=== PATIENT | female | born 1960 | race Caucasian/White ===

== ENCOUNTER 2017-04-21 17:47 | Emergency (ER) | payer BC, OTHER ==
[~2017-04-21] VITALS: Ht 154.9 cm; Wt 72.9 kg
[2017-04-21 18:06] VITALS: Ht 154.9 cm; Wt 72.9 kg
--- NOTE | 2017-04-21 18:58 | EMERGENCY ROOM VISIT NOTE ---
History Report prepared by Ottoniel: Jeanna Costa Under the Supervision of: Dr. Marissa Mayers M.D. First contact with patient: 18:22 Chief Complaint: ABNORMAL LABS Stated Complaint: LOW HEMOGLOBIN, REFERRED History of Present Illness The patient is a 57 year old female who presents to the Emergency Room with complaints of constant shortness of breath beginning 2 months ago. The patient states that she has been feeling lethargic and out of breath for about 2 months. She notes that her symptoms have been progressively worsening and are much worse with exertion. She reports that she went to the [facility] walk-in clinic today for her worsening shortness of breath and got labs done. They called her today and told her to come into the ED for low hemoglobin. The patient states that she does not get her period, she does not smoke, and she has not had a hysterectomy. She reports that she has had increased stress from a new job and has a history of a uterine fibroid cyst that is not new or bleeding. She complains of coughing at night. The patient denies any bleeding, chest pain, changes in bowel movements, changes in diet, blood in the stools, leg swelling, nausea, vomiting, changes in sleep habits, hair loss, and weight changes. She notes that she is relatively active and has been running, hiking, and biking in the last 6 months with some difficulty recently due to her shortness of breath. Source of History: patient Onset: 2 months ago Position: other (respiratory) Quality: other (SOB) Timing: constant Modifying Factors (Worsening): exertion Associated Symptoms: + cough, + fatigue, No chest pain, No nausea, No vomiting Note: The patient denies any bleeding, changes in bowel movements, changes in diet, blood in the stools, leg swelling, changes in sleep habits, hair loss, and weight changes. Review of Systems See HPI for pertinent positives & negatives. A total of 10 systems reviewed and were otherwise negative. Past Medical & Surgical Medical Problems: (1) Uterine fibroid Family History No pertinent family history stated. Social History Smoking Status: Never Smoker Marital Status: Housing Status: lives with family Occupation Status: employed Current/Historical Medications No Active Prescriptions or Reported Meds Allergies Coded Allergies: Sulfa Antibiotics (Verified Allergy, Intermediate, Itchiness, 04/21/17) Physical Exam Vital Signs Date Time Temp Pulse Resp B/P (MAP) Pulse Ox O2 Delivery O2 Flow Rate FiO2 10/24/17 00:20 37.0 88 20 160/82 99 Room Air 04/21/17 23:54 37.0 86 20 160/82 99 04/21/17 23:08 83 04/21/17 23:03 37.0 85 16 152/79 99 04/21/17 22:32 04/21/17 22:31 37.0 82 16 139/83 97 04/21/17 22:07 37.0 81 16 141/67 97 04/21/17 21:54 37.0 81 16 140/77 98 04/21/17 20:39 84 16 127/79 98 Room Air 04/21/17 19:10 84 04/21/17 18:06 37.1 90 20 173/77 100 Room Air Physical Exam Vital signs reviewed. General: Well-appearing female, in no significant distress. HEENT: No scleral icterus, pale conjunctiva, PERRLA, neck supple. Atraumatic. Cardiovascular: Regular rate and rhythm, no extra sounds. Pulmonary: Clear to auscultation bilaterally, normal work of breathing. Abdomen: Soft, nontender, nondistended, positive bowel sounds. Musculoskeletal: Atraumatic, no peripheral edema. Neurologic: Patient awake alert and oriented x 3, full strength in all 4 extremities. Cranial nerves 2 through 12 grossly intact. Skin: Warm, dry, no rash Rectal: Guaiac negative stool. Normal external mucosa. Medical Decision & Procedures Laboratory Results 04/21/17 18:42 Red Blood Count 4.07, Mean Corpuscular Volume 56.8, Mean Corpuscular Hemoglobin 16.5, Mean Corpuscular Hemoglobin Concent 29.0, Neutrophils (%) (Auto) 78.5, Lymphocytes (%) (Auto) 16.1, Monocytes (%) (Auto) 3.5, Eosinophils (%) (Auto) 0.8, Basophils (%) (Auto) 0.8, Neutrophils # (Auto) 6.91, Lymphocytes # (Auto) 1.42, Monocytes # (Auto) 0.31, Eosinophils # (Auto) 0.07, Basophils # (Auto) 0.07 04/21/17 18:42 Test 04/21/17 18:42 04/21/17 18:54 White Blood Count 8.81 K/uL (4.8-10.8) Red Blood Count 4.07 M/uL (4.2-5.4) Hemoglobin 6.8 g/dL (12.0-16.0) Hematocrit 23.1 % (37-47) Mean Corpuscular Volume 56.8 fL (80-100) Mean Corpuscular Hemoglobin 16.5 pg (25-34) Mean Corpuscular Hemoglobin Concent 29.0 g/dl (32-36) Platelet Count 440 K/uL (130-400) Neutrophils (%) (Auto) 78.5 % Lymphocytes (%) (Auto) 16.1 % Monocytes (%) (Auto) 3.5 % Eosinophils (%) (Auto) 0.8 % Basophils (%) (Auto) 0.8 % Neutrophils # (Auto) 6.91 K/uL (1.4-6.5) Lymphocytes # (Auto) 1.42 K/uL (1.2-3.4) Monocytes # (Auto) 0.31 K/uL (0.11-0.59) Eosinophils # (Auto) 0.07 K/uL (0-0.5) Basophils # (Auto) 0.07 K/uL (0-0.2) RDW Standard Deviation 42.4 fL (36.4-46.3) RDW Coefficient of Variation 20.5 % (11.5-14.5) Immature Granulocyte % (Auto) 0.3 % Immature Granulocyte # (Auto) 0.03 K/uL (0.00-0.02) Platelet Estimate INCREASED Hypochromasia PRESENT Anisocytosis PRESENT Microcytosis PRESENT Spherocytes 1+ Ovalocytes 1+ Schistocytes 1+ Absolute Reticulocyte Count 0.06 10^6/uL (0.02-0.10) Percent Reticulocyte Count 1.4 % (0.5-2.0) Anion Gap 9.0 mmol/L (3-11) Est Creatinine Clear Calc Drug Dose 68.3 ml/min Estimated GFR () 90.7 Estimated GFR (Non- 78.3 BUN/Creatinine Ratio 12.3 (10-20) Calcium Level 8.1 mg/dl (8.5-10.1) Iron Level 9 mcg/dl (35-150) Total Iron Binding Capacity 384 mcg/dl (250-450) Ferritin 3.4 ng/ml (8.0-388.0) Total Bilirubin 0.3 mg/dl (0.2-1) Direct Bilirubin < 0.1 mg/dl (0-0.2) Aspartate Amino Transf (AST/SGOT) 19 U/L (15-37) Alanine Aminotransferase (ALT/SGPT) 15 U/L (12-78) Alkaline Phosphatase 90 U/L (45-117) Total Creatine Kinase 47 U/L (26-192) Creatine Kinase MB 0.6 ng/ml (0.5-3.6) Creatine Kinase MB Ratio 1.3 (0-3.0) Total Protein 8.0 gm/dl (6.4-8.2) Albumin 3.5 gm/dl (3.4-5.0) Vitamin B12 Level 513 pg/mL (211-911) Folate 22.70 ng/mL (>5.38) Thyroid Stimulating Hormone (TSH) 1.940 uIu/ml (0.300-4.500) Bedside Troponin I < 0.030 ng/ml (0-0.045) Laboratory results per my review. Medications Administered Medications (Trade) Dose Ordered Sig/Shanelle Route Start Time Stop Time Status Last Admin Dose Admin Acetaminophen (Tylenol Tab) 650 mg NOW STAT PO 04/21/17 19:23 04/21/17 19:24 DC 04/21/17 19:23 650 MG ECG Indication: weakness Rate (beats per minute): 89 Rhythm: normal sinus Findings: no acute ischemic change, no ectopy ED Course 1821: Past medical records reviewed. The patient was evaluated in room C12A. A complete history and physical examination was performed. 1922: Tylenol Tab 650mg PO. 2013: I reevaluated and updated the patient. 2126: I spoke to Dr. Pablo of [facility]. He recommends giving the patient a transfusion in the ED and will speak to her. 2145: I reevaluated and updated the patient. 2355: Upon reevaluation, the patient appeared to have improvement of her symptoms. I discussed findings with the patient. She verbalized agreement of the treatment plan. The patient will be discharged home after she is finished getting blood. Medical Decision Differential diagnosis: Etiologies such as infections, reactive airway disease, pneumonia, pneumothorax , COPD, CHF, cardiac ischemia, pulmonary embolism, musculoskeletal, gastrointestinal, as well as others were entertained. This patient was evaluated and appeared to be in no significant distress. The patient was tearful on exam. She does appear to be pale. Vital signs are stable. Laboratory work reveals anemia with a hemoglobin of 6.8. Iron is low at 9. Patient was type and crossed for 2 units PRBC. She does not appear to be acutely bleeding. I suspect this is an absorption issue. The patient was transfused with 1 unit PRBCs after consultation with Dr. Pablo. He did evaluate the patient's and believe she can be discharged for further outpatient management. The patient expressed understanding of the plan. Case management will help arrange follow-up with PCP early in the week. She will likely require hematologic workup. Patient will return to the ER for worsening of symptoms or any medical concerns. Medication Reconcilliation Current Medication List: was personally reviewed by me Blood Pressure Screening Patient's blood pressure: Elevated blood pressure Blood pressure disposition: Elevated BP felt to be situational Consults Time Called: 2119 Consulting Physician: Dr. Pablo - [facility] [place] Returned Call: [address] Pablo of [facility]. He recommends giving the patient a transfusion in the ED and will speak to her. Impression Primary Impression: Iron deficiency anemia Scribe Attestation The scribe's documentation has been prepared under my direction and personally reviewed by me in its entirety. I confirm that the note above accurately reflects all work, treatment, procedures, and medical decision making performed by me. Departure Information Dispostion Home / Self-Care Prescriptions No Active Prescriptions or Reported Meds Forms HOME CARE DOCUMENTATION FORM, IMPORTANT VISIT INFORMATION, WORK / SCHOOL INSTRUCTIONS Patient Instructions [facility] Additional Instructions Diagnosis: Iron deficiency anemia. Please follow-up with Dr. Mack or one of her partners as soon as possible. Case management will help arrange for this appointment. You may need a hematology (Dr. Mcfarlane or Dr Mack's recommendation) consultation. Drink plenty of clear fluids. Return to the emergency department for worsening of symptoms or any medical concerns.
[2017-04-21] MEDS ORDERED: ACETAMINOPHEN 325 MG TAB PO STA (19:23)
[2017-04-21 19:59] LABS: AST/SGOT 19 U/L (15-37); CALCIUM 8.1 mg/dl (8.5-10.1); CARBON DIOXIDE 25 mmol/L (21-32); CHLORIDE 106 mmol/L (98-107); CREATININE 0.83 mg/dl (0.60-1.20); FERRITIN 3.4 ng/ml (8.0-388.0); POTASSIUM 3.4 mmol/L (3.5-5.1); SODIUM 140 mmol/L (136-145)
[2017-04-21 20:00] LABS: ALKALINE PHOSPHATASE 90 U/L (45-117); ALT/SGPT 15 U/L (12-78); BLOOD UREA NITROGEN 10 mg/dl (7-18); BUN/CREATININE RATIO 12.3 (10-20); CKMB/CK RATIO 1.3 (0-3.0); GLUCOSE 100 mg/dl (70-99); TOTAL IRON BINDING CAPACITY 384 mcg/dl (250-450)
[2017-04-21 20:27] LABS: HEMATOCRIT 23.1 % (37-47); MEAN CELL VOLUME 56.8 fL (80-100); MEAN CORPUSCULAR HEMOGLOBIN 16.5 pg (25-34); PLATELET COUNT 440 K/uL (130-400); RED BLOOD COUNT 4.07 M/uL (4.2-5.4); WHITE BLOOD COUNT 8.81 K/uL (4.8-10.8)
[2017-04-21 20:30] LABS: ANISOCYTOSIS PRESENT; BASO % 0.8 %; BASO ABS # 0.07 K/uL (0-0.2); COMPLETE YES; EOS % 0.8 %; HYPOCHROMIA PRESENT; IG% 0.3 %; LYMPH % 16.1 %; LYMPH ABS # 1.42 K/uL (1.2-3.4); MICROCYTOSIS PRESENT; MONO % 3.5 %; NEUT % 78.5 %; OVALOCYTES 1+; PLT ESTIMATE INCREASED; SCHISTOCYTES 1+; SPHEROCYTE 1+
[2017-04-21 21:54] VITALS: BP 140/77; PULSE 81; TEMP 37; O2SAT 98
[2017-04-21 22:07] VITALS: BP 141/67; PULSE 81; TEMP 37; O2SAT 97
--- NOTE | 2017-04-21 22:18 | Medical Consult ---
Consultation Date of Consultation: Apr 21, 2017. Attending Physician: Reason for Consultation: Anemia History of Present Illness 57 y/o F who denies any significant medical history - presenting with 2 mo progressive SOB. She had been to a walk-in clinic earlier in day. Labs were obtained, her Hb returned as 6.8 and she was sent to the ER for evaluation. The pt does not menstruate. She denies any history of dark or red stools. A rectal exam in the ER was guiac negative. Hb was confirmed in the ER, initial iron level was 9, TIBC was within normal limits. The pt denies fevers or night sweats, weight loss, dizziness or any chest pain. Her SOB is largely exertional. She does admit to chronic fatigue. Past Medical/Surgical History Uterine fibroid Family History Noncontributory Social History Smoking Status: Never Smoker Marital Status: Housing Status: lives with family Occupation Status: employed Allergies Coded Allergies: Sulfa Antibiotics (Verified Allergy, Intermediate, Itchiness, 04/21/17) Review of Systems Constitutional: No fever, No chills, No sweats Eyes: No worsening of vision ENT: No hearing loss, No unusual epistaxis, No nasal symptoms Respiratory: + dyspnea on exertion, No cough, No sputum, No wheezing Cardiovascular: No chest pain, No orthopnea, No PND Abdomen: No pain, No nausea, No vomiting Musculoskeletal: No joint pain Genitourinary - Female: No dysuria, No urinary frequency Neurologic: No memory loss, No paralysis, No weakness Psychiatric: No depression symptoms Endocrine: No fatigue Hematologic / Lymphatic: No abnormal bleeding/bruising Integumentary: No rash Allergic / Immunologic: No environmental allergies Physical Exam Date Time Temp Pulse Resp B/P (MAP) Pulse Ox O2 Delivery O2 Flow Rate FiO2 04/21/17 21:54 37.0 81 16 140/77 98 04/21/17 20:39 84 16 127/79 98 Room Air 04/21/17 19:10 84 04/21/17 18:06 37.1 90 20 173/77 100 Room Air General Appearance: WD/WN, no apparent distress Head: normocephalic Eyes: normal inspection ENT: normal ENT inspection, pharynx normal Neck: supple, no JVD Respiratory/Chest: chest non-tender, lungs clear Cardiovascular: regular rate, rhythm, no edema, no gallop, no JVD, no murmur, normal peripheral pulses Abdomen/GI: normal bowel sounds, non tender, soft Back: normal inspection, no CVA tenderness, no muscle spasm, normal range of motion Extremities/Musculoskelatal: normal inspection, no calf tenderness, normal capillary refill, no pedal edema, normal range of motion 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, no motor/sensory deficits, alert Skin: normal color, warm/dry, no rash Laboratory Results Last 24 Hours Test 04/21/17 18:42 04/21/17 18:54 White Blood Count 8.81 K/uL Red Blood Count 4.07 M/uL Hemoglobin 6.8 g/dL Hematocrit 23.1 % Mean Corpuscular Volume 56.8 fL Mean Corpuscular Hemoglobin 16.5 pg Mean Corpuscular Hemoglobin Concent 29.0 g/dl Platelet Count 440 K/uL Neutrophils (%) (Auto) 78.5 % Lymphocytes (%) (Auto) 16.1 % Monocytes (%) (Auto) 3.5 % Eosinophils (%) (Auto) 0.8 % Basophils (%) (Auto) 0.8 % Neutrophils # (Auto) 6.91 K/uL Lymphocytes # (Auto) 1.42 K/uL Monocytes # (Auto) 0.31 K/uL Eosinophils # (Auto) 0.07 K/uL Basophils # (Auto) 0.07 K/uL RDW Standard Deviation 42.4 fL RDW Coefficient of Variation 20.5 % Immature Granulocyte % (Auto) 0.3 % Immature Granulocyte # (Auto) 0.03 K/uL Platelet Estimate INCREASED Hypochromasia PRESENT Anisocytosis PRESENT Microcytosis PRESENT Spherocytes 1+ Ovalocytes 1+ Schistocytes 1+ Absolute Reticulocyte Count 0.06 10^6/uL Percent Reticulocyte Count 1.4 % Sodium Level 140 mmol/L Potassium Level 3.4 mmol/L Chloride Level 106 mmol/L Carbon Dioxide Level 25 mmol/L Anion Gap 9.0 mmol/L Blood Urea Nitrogen 10 mg/dl Creatinine 0.83 mg/dl Est Creatinine Clear Calc Drug Dose 68.3 ml/min Estimated GFR () 90.7 Estimated GFR (Non- 78.3 BUN/Creatinine Ratio 12.3 Random Glucose 100 mg/dl Calcium Level 8.1 mg/dl Iron Level 9 mcg/dl Total Iron Binding Capacity 384 mcg/dl Ferritin 3.4 ng/ml Total Bilirubin 0.3 mg/dl Direct Bilirubin < 0.1 mg/dl Aspartate Amino Transf (AST/SGOT) 19 U/L Alanine Aminotransferase (ALT/SGPT) 15 U/L Alkaline Phosphatase 90 U/L Total Creatine Kinase 47 U/L Creatine Kinase MB 0.6 ng/ml Creatine Kinase MB Ratio 1.3 Total Protein 8.0 gm/dl Albumin 3.5 gm/dl Vitamin B12 Level 513 pg/mL Folate 22.70 ng/mL Thyroid Stimulating Hormone (TSH) 1.940 uIu/ml Bedside Troponin I < 0.030 ng/ml Assessment & Plan 57 y/o F who denies any significant medical history - presenting with 2 mo progressive SOB. She had been to a walk-in clinic earlier in day. Labs were obtained, her Hb returned as 6.8 and she was sent to the ER for evaluation. The pt does not menstruate. She denies any history of dark or red stools. A rectal exam in the ER was guiac negative. Hb was confirmed in the ER, initial iron level was 9, TIBC was within normal limits. The pt denies fevers or night sweats, weight loss, dizziness or any chest pain. Her SOB is largely exertional. She does admit to chronic fatigue. Anemia - appears iron-deficient - no evidence of blood loss - she has a history of a uterine fibroid but denies any post-menopausal bleeding or any GI bleeding. Initial labs indicate iron-deficiency. As she is symptomatic with an Hb below 7.0 we will recommend transfusion. It is unlikely that this blood loss is acute as her symptoms have been gradual for a least 2 months. It is therefore reasonable to have her follow-up with a vehicle operator for further workup following transfusion. We would not recommend iron suppplementation prior to hematology workup as this may skew additional studies. The pt should return to the hospital with worsening symptoms, CP, dizziness or any signs of active blood loss. Total time for this consult including review of labs, meds, records - discussion with pt and ER attending - 32 min
[2017-04-21 22:31] VITALS: BP 139/83; PULSE 82; TEMP 37; O2SAT 97
[2017-04-21 23:03] VITALS: BP 152/79; PULSE 85; TEMP 37; O2SAT 99
[2017-04-21 23:54] VITALS: BP 160/82; PULSE 86; TEMP 37; O2SAT 99
[2017-04-22 00:20] VITALS: BP 160/82; PULSE 88; TEMP 37; O2SAT 99
== END 2017-04-22 00:20 | disposition home or self-care (01) ==
LOC: C.EDB 17:49 → C.EDC 04-22 00:20
DX: D50.9 Iron deficiency anemia, unspecified (principal); R06.02 Shortness of breath; R05 Cough; Z87.42 Personal history of other diseases of the female genital tract

== ENCOUNTER → 2017-04-25 | Outpatient (CLI) | payer OTHER ==
[2017-04-25 13:16] LABS: CHOLESTEROL/HDL RATIO 5.8; HEMATOCRIT 25.1 % (37-47); MEAN CELL VOLUME 60.8 fL (80-100); MEAN CORPUSCULAR HEMOGLOBIN 17.2 pg (25-34); MEAN CORPUSCULAR HGB CONC 28.3 g/dl (32-36); PLATELET COUNT 310 K/uL (130-400); RED BLOOD COUNT 4.13 M/uL (4.2-5.4); WHITE BLOOD COUNT 8.12 K/uL (4.8-10.8)
[2017-04-25 13:20] LABS: ANISOCYTOSIS PRESENT; BASO % 0.7 %; BASO ABS # 0.06 K/uL (0-0.2); COMPLETE YES; EOS % 1.8 %; HYPOCHROMIA PRESENT; IG% 0.2 %; LYMPH % 16.4 %; LYMPH ABS # 1.33 K/uL (1.2-3.4); MICROCYTOSIS PRESENT; MONO % 3.9 %; SCHISTOCYTES 1+
== END | disposition home or self-care (01) ==
LOC: C.LABPVFM 09:26
PROVIDERS: ATTEND Physician Assistant Medical
DX: D64.9 Anemia, unspecified (principal); E78.00 Pure hypercholesterolemia, unspecified

== ENCOUNTER → 2017-04-29 | Day surgery (SDC) | payer OTHER ==
[2017-04-28 14:09] VITALS: Ht 160 cm; Wt 71.4 kg
[~2017-04-29] VITALS: Ht 160 cm; Wt 71.4 kg
[~2017-04-29] MED LIST: LIDOCAINE HCL 2% 2 ML VIAL (20MG/ML) ONE; MIDAZOLAM HCL 1 MG/ML 2ML VIAL ONE; ONDANSETRON INJ 2 MG/ML 2 ML VIAL ONE; PROPOFOL IV EMULSION 10 MG/ML 20 ML VIAL IV ONE; SODIUM CHLORIDE 0.9% 500ML 500 ML IV ONE
--- NOTE | 2017-04-29 12:32 | Endo History and Physical ---
History & Physical Date of Service: Apr 29, 2017. Chief Complaint: ANEMIA Referring Physician: DR. MARIA History of Present Illness 57 yo CF who presents for EGD and Colonoscopy secondary to anemia. Past Surgical History Hx Cardiac Surgery: No Hx Internal Defibrillator: No Hx Pacemaker: No Hx Abdominal Surgery: No Hx of Implantable Prosthesis: No Hx Post-Op Nausea and Vomiting: No Hx Cancer Surgery: No Hx Thoracic Surgery: No Hx Orthopedic: No Hx Urinary Tract Surgery: No Family History None Social History Smoking Status: Never Smoker Hx Substance Use: No Hx Alcohol Use: Yes (RARELY) Allergies Coded Allergies: Sulfa Antibiotics (Verified Allergy, Intermediate, Itchiness, 04/29/17) Current Medications Reported Home Medications Medications Dose Route/Sig Max Daily Dose Days Date Category No Active Prescriptions or Reported Medications Rx Vital Signs Weight (Kilograms): 71.36 Height (Feet): 5 Height (Inches): 3 Date Time Temp Pulse Resp B/P (MAP) Pulse Ox O2 Delivery O2 Flow Rate FiO2 04/29/17 11:55 37.2 77 16 146/70 (95) 100 Room Air Physical Exam General Appearance: WD/WN, no apparent distress Respiratory/Chest: Auscultation: breath sounds normal Cardiovascular: Heart Auscultation: RRR Abdomen: Bowel Sounds: normal Inspection & Palpation: soft, non-distended, no tenderness, guarding & rebound Assessment and Plan Assessment: 57 yo CF who presents for EGD and Colonoscopy secondary to anemia. Plan: Proceed with EGD and colonoscopy.
--- NOTE | 2017-04-29 13:09 | Discharge Instructions ---
Endoscopy Patient Instructions Date / Procedure(s) Performed Apr 29, 2017. Colonoscopy, EGD Allergy Information Coded Allergies: Sulfa Antibiotics (Verified Allergy, Intermediate, Itchiness, 04/29/17) Discharge Date / Findings Apr 29, 2017. EGD: Esophagitis s/p biopsies Colonoscopy: Internal hemorrhoids Medication Instructions OK to resume all medications today as prescribed Reported Home Medications Medications Dose Route/Sig Max Daily Dose Days Date Category No Active Prescriptions or Reported Medications Rx Provider Instructions Activity Restrictions - No exercising or heavy lifting for 24 hours. - Do not drink alcohol the day of the procedure. - Do not drive a car or operate machinery until the day after the procedure. - Do not make any important decisions or sign important papers in 24 hours after the procedure. Following Day: - Return to full activity which may include returning to work/school. Diet Start your diet with liquids and light foods (jello, soup, juice, toast). Then eat your usual diet if not nauseated. Treatment For Common After Affects For mild abdominal pain, bloating, or excessive gas: - Rest - Eat lightly - Lie on right side Follow-Up Information Follow-up with DR. MARIA as scheduled Anesthesia Information What You Should Know You have had a procedure that required some medicine to reduce anxiety and discomfort. This treatment is called moderate sedation. After receiving the treatment, you may be sleepy, but you will be able to breathe on your own. The effects of the treatment may last for several hours. Follow these instructions along with Activity/Diet recommendations noted above: * Do NOT do anything where dizziness or clumsiness would be dangerous. * Rest quietly at home today, then you can be up and about tomorrow. * Have a responsible person stay with you the rest of today. * You may have had an I.V. today. If so, you may take the dressing off later today. Recommendations Call your doctor if: * Trouble breathing * Continuous vomiting for more than 24 hours * Temperature above 101 degrees * Severe abdominal pain or bloating * Pain not relieved by pain medicine ordered * There is increased drainage or redness from any incision * A large amount of rectal bleeding greater than 2-3 tablespoons. (If you had a polyp/s removed or have hemorrhoids, a small amount of blood - from the rectum is to be expected.) * You have any unanswered questions or concerns. IN THE EVENT OF A SERIOUS EMERGENCY, GO TO THE NEAREST EMERGENCY ROOM Your discharge instructions were prepared by provider Toni Mccormick. Patient Instructions Signature Page Stephie Duque Patient (or Guardian) Signature/Date: I have read and understand the instructions given to me by my caregivers. Caregiver/RN/Doctor Signature/Date: The above-named patient and/or guardian has received patient instructions on this date. + Original Patient Signature Page (only) stays with chart. Please make copy for patient.
--- NOTE | 2017-04-29 13:12 | GI REPORT ---
Procedure Date: 04/29/2017 12:33 PM Procedure: Colonoscopy Indications: Iron deficiency anemia Medicines: Monitored Anesthesia Care Complications: No immediate complications. Estimated Blood Loss: Estimated blood loss: none. Procedure: Pre-Anesthesia Assessment: - Prior to the procedure, a History and Physical was performed, and patient medications and allergies were reviewed. The patient's tolerance of previous anesthesia was also reviewed. The risks and benefits of the procedure and the sedation options and risks were discussed with the patient. All questions were answered, and informed consent was obtained. Prior Anticoagulants: The patient has taken no previous anticoagulant or antiplatelet agents. ASA Grade Assessment: II - A patient with mild systemic disease. After reviewing the risks and benefits, the patient was deemed in satisfactory condition to undergo the procedure. After I obtained informed consent, the scope was passed under direct vision. Throughout the procedure, the patient's blood pressure, pulse, and oxygen saturations were monitored continuously. The scope was introduced through the anus and advanced to the terminal ileum. The colonoscopy was performed without difficulty. The patient tolerated the procedure well. The quality of the bowel preparation was good. The terminal ileum, ileocecal valve, appendiceal orifice, and rectum were photographed. Findings: The perianal and digital rectal examinations were normal. Non-bleeding internal hemorrhoids were found during retroflexion. The hemorrhoids were small. The exam was otherwise without abnormality. Impression: - Non-bleeding internal hemorrhoids. - The examination was otherwise normal. - No specimens collected. Recommendation: - Resume previous diet. - Continue present medications. - Repeat colonoscopy in 10 years for surveillance. - Return to primary care physician as previously scheduled. Toni Mccormick, 04/29/2017 1:11:32 PM This report has been signed electronically. Note Initiated On: 04/29/2017 12:33 PM I attest to the content of the Intraoperative Record and orders documented therein, exceptions below
--- NOTE | 2017-04-29 13:13 | GI REPORT ---
Procedure Date: 04/29/2017 12:34 PM Procedure: Upper GI endoscopy Indications: Iron deficiency anemia Medicines: Monitored Anesthesia Care Complications: No immediate complications. Estimated Blood Loss: Estimated blood loss: none. Procedure: Pre-Anesthesia Assessment: - Prior to the procedure, a History and Physical was performed, and patient medications and allergies were reviewed. The patient's tolerance of previous anesthesia was also reviewed. The risks and benefits of the procedure and the sedation options and risks were discussed with the patient. All questions were answered, and informed consent was obtained. Prior Anticoagulants: The patient has taken no previous anticoagulant or antiplatelet agents. ASA Grade Assessment: II - A patient with mild systemic disease. After reviewing the risks and benefits, the patient was deemed in satisfactory condition to undergo the procedure. After obtaining informed consent, the endoscope was passed under direct vision. Throughout the procedure, the patient's blood pressure, pulse, and oxygen saturations were monitored continuously. The scope was introduced through the mouth, and advanced to the second part of duodenum. The upper GI endoscopy was accomplished without difficulty. The patient tolerated the procedure well. Findings: Mildly severe esophagitis with no bleeding was found. Biopsies were taken with a cold forceps for histology. The stomach was normal. The examined duodenum was normal. Impression: - Mildly severe non-erosive esophagitis. Biopsied. - Normal stomach. - Normal examined duodenum. Recommendation: - Resume previous diet. - Continue present medications. - Await pathology results. - Return to primary care physician as previously scheduled. Toni Mccormick, 04/29/2017 1:12:49 PM This report has been signed electronically. Note Initiated On: 04/29/2017 12:34 PM I attest to the content of the Intraoperative Record and orders documented therein, exceptions below
--- NOTE | 2017-04-29 13:41 | Anesthesiology Progress Note ---
Anesthesia Post Op Note Date & Time Apr 29, 2017 at 13:41 Vital Signs Pain Intensity: 0 Vital Signs Past 12 Hours Date Time Temp Pulse Resp B/P (MAP) Pulse Ox O2 Delivery O2 Flow Rate FiO2 04/29/17 13:10 73 16 117/58 (77) 100 Room Air 04/29/17 11:55 37.2 77 16 146/70 (95) 100 Room Air Notes Mental Status: alert / awake / arousable, participated in evaluation Pt Amnestic to Procedure: Yes Nausea / Vomiting: adequately controlled Pain: adequately controlled Airway Patency, RR, SpO2: stable & adequate BP & HR: stable & adequate Hydration State: stable & adequate Anesthetic Complications: no major complications apparent
[2017-04-29 13:50] VITALS: BP 134/65; PULSE 74; O2SAT 98
== END | disposition home or self-care (01) ==
LOC: C.GI 11:41
PROVIDERS: ATTEND Internal Medicine
DX: D50.9 Iron deficiency anemia, unspecified (principal); K20.9 Esophagitis, unspecified; K64.8 Other hemorrhoids

== ENCOUNTER → 2017-08-04 | Outpatient (CLI) | payer OTHER | END | disposition home or self-care (01) | LOC: C.PAPS 15:19 | PROVIDERS: ATTEND Obstetrics & Gynecology | DX: Z12.4 Encounter for screening for malignant neoplasm of cervix (principal) ==

== ENCOUNTER 2017-09-19 07:54 | Inpatient (IN) | payer OTHER ==
--- NOTE | 2017-09-12 10:18 | HISTORY & PHYSICAL EXAMINATION ---
DATE OF ADMISSION: 09/19/2017 CHIEF COMPLAINT: Pelvic pain and pressure, anemia, large pelvic mass. HISTORY OF PRESENT ILLNESS: The patient is a 57-year-old 2, para 2. General health is good. Her only medication is cholesterol meds. Her periods stopped at age 55. She has had no bleeding since. She does have a recent history of anemia of uncertain etiology. She has had a large fibroid uterus for years. It has caused pelvic pain and pressure. It requires her to urinate frequently about every hour. She has a lot of right upper quadrant discomfort and she is presently being scheduled for a total abdominal hysterectomy with preservation of ovaries. PAST MEDICAL HISTORY: She has 2 children in good health. ALLERGIES: SHE IS ALLERGIC TO SULFA. MEDICATIONS: Her only medication is for elevated cholesterol. PAST SURGICAL HISTORY: She has had no previous surgery. SOCIAL HISTORY: No smoking. No alcohol intake. Works as a housewife. FAMILY HISTORY: She is adopted. REVIEW OF SYSTEMS: She has tension headaches. No symptoms of frequent or severe ear infections, nosebleed, sore throats, kidney or bladder infections. PHYSICAL EXAMINATION: GENERAL: Well-developed, well-nourished 57-year-old white female, alert, oriented x3 and cooperative in no acute distress, appeared her stated age. EYES: Conjunctivae are pink. Sclerae white, no evidence of jaundice. EARS: Had normal light reflex bilaterally. NOSE: Had normal mucosa. Septum is midline. There were no polyps. THROAT: No erythema or evidence of infection. Teeth are in a good state of repair. HEAD: Normocephalic, normal distribution of hair. NECK: Supple. Trachea midline. Thyroid is not enlarged. There is no adenopathy appreciated. Both carotids are of good intensity. CHEST: Clear to auscultation and percussion. No wheezes, rales or rhonchi appreciated. HEART: Had regular rhythm. S1, S2 are normal. BREASTS: Normal. ABDOMEN: Soft and nontender. PELVIC: Revealed a normal-appearing cervix. Bimanual exam revealed a 16-18 weeks' gestational size uterus. HEART: Irregular. MUSCULOSKELETAL: Revealed no calf tenderness. IMPRESSIONS OF THIS CASE: Anemia, pelvic pain and pressure, symptomatic fibroid uterus. MTDD
[2017-09-12 11:07] VITALS: BMI 29.0
--- NOTE | 2017-09-12 11:42 | PAT Medication Instructions ---
Service Date Sep 12, 2017. Current Home Medication List Atorvastatin (Lipitor), 10 MG PO HS Ferrous Sulfate (Iron (Ferrous Sulfate)), Unknown Dose PO QAM Ibuprofen (Advil), 400 MG PO UD PRN for PRN Medication Instructions For Your Scheduled Surgery - Contact your surgeon for instructions for: Ibuprofen (Advil), 400 MG PO UD PRN for PRN - Hold the following medications the morning of surgery with a sip of water: Ferrous Sulfate (Iron (Ferrous Sulfate)), Unknown Dose PO QAM - Take the following medications as scheduled the night before surgery: Atorvastatin (Lipitor), 10 MG PO HS If you have any questions please call us at [phone] or [phone] or [phone]
[2017-09-12 12:08] LABS: BASO % 0.9 %; BASO ABS # 0.05 K/uL (0-0.2); EOS ABS # 0.12 K/uL (0-0.5); HEMATOCRIT 41.3 % (37-47); HEMOGLOBIN 14.2 g/dL (12.0-16.0); IG# 0.02 K/uL (0.00-0.02); LYMPH % 24.2 %; LYMPH ABS # 1.42 K/uL (1.2-3.4); MEAN CELL VOLUME 77.2 fL (80-100); MEAN CORPUSCULAR HEMOGLOBIN 26.5 pg (25-34); MEAN CORPUSCULAR HGB CONC 34.4 g/dl (32-36); MEAN PLATELET VOLUME 9.2 fL (7.4-10.4); MONO % 6.3 %; MONO ABS # 0.37 K/uL (0.11-0.59); NEUT % 66.3 %; NEUT ABS # 3.88 K/uL (1.4-6.5); PLATELET COUNT 216 K/uL (130-400); RED CELL DISTRIBUTION WIDTH CV 14.5 % (11.5-14.5); RED CELL DISTRIBUTION WIDTH SD 39.9 fL (36.4-46.3); WHITE BLOOD COUNT 5.86 K/uL (4.8-10.8)
[2017-09-12 12:19] LABS: PTT PATIENT 32.2 SECONDS (21.0-31.0)
[2017-09-19] VITALS (10 sets, daily range): BP systolic 130–152; BP diastolic 65–77; PULSE 60–69; TEMP 36.6–37.2; O2SAT 96–98; Ht 157.5 cm; Wt 73.3 kg
[~2017-09-19] VITALS: Ht 157.5 cm; Wt 73.3 kg
[~2017-09-19 07:54] MED LIST changes: +ATOR10TA82 PO; +CEFOXITIN 2000MG/60 ML D5W IV SCH; +CEFOXITIN IV 2,000 MG in DEXTROSE 5% 50ML 50 ML IV SCH; +FERR50TA3 PO; +IBUP-1050 PO; +LACTATED RINGER'S 1000ML 1,000 ML IV SCH; -LIDOCAINE HCL 2% 2 ML VIAL (20MG/ML) ONE; -MIDAZOLAM HCL 1 MG/ML 2ML VIAL ONE; -ONDANSETRON INJ 2 MG/ML 2 ML VIAL ONE; -PROPOFOL IV EMULSION 10 MG/ML 20 ML VIAL IV ONE; -SODIUM CHLORIDE 0.9% 500ML 500 ML IV ONE
[2017-09-19] MEDS ORDERED: FENTANYL CITRATE INJ 50 MCG/1 ML 2 ML VIAL IV PRN (08:00)
[2017-09-19] MEDS ORDERED: ATROPINE SULFATE 0.1 MG/ML 5ML SYR IV PRN (08:00)
[2017-09-19] MEDS ORDERED: ONDANSETRON INJ 2 MG/ML 2 ML VIAL IV PRN ×2 (08:00→12:45)
[2017-09-19] MEDS ORDERED: PROMETHAZINE HCL INJ 12.5 MG in SODIUM CHLORIDE 0.9% 50ML 50 ML IV PRN (08:00)
[2017-09-19] MEDS ORDERED: PHENYLEPHRINE 100MCG/ML 5ML SYR IV PRN (08:00)
[2017-09-19] MEDS ORDERED: HYDROmorphone INJ 1 MG/ML SYR IV PRN (08:00)
[2017-09-19] MEDS ORDERED: EpHEDrine SULFATE INJ 50 MG/ML AMP IV PRN ×2 (08:00→12:45)
[2017-09-19] MEDS ORDERED: MoRPHine SULFATE PF 1 MG/ML 10 ML AMP/VIAL ONE (10:16)
[2017-09-19] MEDS ORDERED: FENTANYL CITRATE INJ 50 MCG/1 ML 2 ML VIAL ONE (10:16)
[2017-09-19] MEDS ORDERED: MIDAZOLAM HCL 1 MG/ML 2ML VIAL ONE (10:16)
[2017-09-19] MEDS ORDERED: HYDROmorphone INJ 2 MG/ML SYR/VIAL ONE (10:17)
[2017-09-19] MEDS ORDERED: KETAMINE HCL INJ 50 MG/ML 10 ML VIAL ONE (10:17)
--- NOTE | 2017-09-19 10:20 | History & Physical Bridge Note ---
H&P Re-Evaluation Bridge Note: I have examined the patient, reviewed the History & Physical and in the interval since the performance of the History & Physical I have noted the following changes of clinical significance: No changes noted
[2017-09-19] MEDS ORDERED: SODIUM CHLORIDE 0.9% INJ 10 ML VIAL ONE ×2 (10:26→12:44)
[2017-09-19] MEDS ORDERED: ONDANSETRON INJ 2 MG/ML 2 ML VIAL ONE ×2 (10:37→12:44)
[2017-09-19] MEDS ORDERED: LIDOCAINE HCL 2% 2 ML VIAL (20MG/ML) ONE (10:37)
[2017-09-19] MEDS ORDERED: DEXAMETHASONE SOD INJ 4 MG/ML VIAL ONE (10:37)
[2017-09-19] MEDS ORDERED: PROPOFOL IV EMULSION 10 MG/ML 20 ML VIAL IV ONE (10:37)
[2017-09-19] MEDS ORDERED: HEPARIN SOD (PORCINE) 1000 UNIT/ML 10 ML VIAL ONE (11:43)
[2017-09-19] MEDS ORDERED: LACTATED RINGER'S 1000ML 500 ML IV PRN (12:34)
[2017-09-19] MEDS ORDERED: SODIUM CHLORIDE 0.9% 1000ML 1,000 ML IV PRN (12:34)
[2017-09-19] MEDS ORDERED: NALOXONE HCL INJ 0.08 MG in SYRINGE 1.8 ML IV PRN (12:34)
[2017-09-19] MEDS ORDERED: NALOXONE HCL INJ 1 MG in SODIUM CHLORIDE 0.9% 1000ML 1,000 ML IV PRN ×4 (12:34)
[2017-09-19] MEDS ORDERED: NEOSTIGMINE METHYLSULFATE 5 MG/5 ML SYR ONE (12:44)
[2017-09-19] MEDS ORDERED: GLYCOPYRROLATE INJ 0.2 MG/ML VIAL ONE (12:44)
[2017-09-19] MEDS ORDERED: EpHEDrine SULFATE INJ 50 MG/ML AMP ONE (12:44)
[2017-09-19] MEDS ORDERED: NO NARCOTICS OR SEDATIVES SCH (12:45)
[2017-09-19] MEDS ORDERED: NALBUPHINE HCL INJ 10 MG/ML AMP IV PRN (12:45)
[2017-09-19] MEDS ORDERED: MoRPHine SULFATE 2 MG/ML CARP IV PRN (12:45)
[2017-09-19] MEDS ORDERED: MoRPHine SULFATE PF 1 MG/ML 10 ML AMP/VIAL EPI PRN (12:45)
[2017-09-19] MEDS ORDERED: DiphenhydrAMINE HCL 50 MG/ML VIAL IV PRN (12:45)
[2017-09-19] MEDS ORDERED: PROMETHAZINE HCL INJ 25 MG in SODIUM CHLORIDE 0.9% 50ML 50 ML IV PRN (12:45)
[2017-09-19] MEDS ORDERED: NALOXONE HCL 0.4 MG/1 ML VIAL/CARP IV PRN (12:45)
[2017-09-19] MEDS ORDERED: KETOROLAC TROMETHAMINE 30 MG/ML VIAL ONE (14:26)
--- NOTE | 2017-09-19 14:32 | [facility] Post Operative Brief Note ---
Immediate Operative Summary Operative Date Sep 19, 2017. Pre-Operative Diagnosis Anemia, Pelvic Pain and Pressure, Symptomatic Fibroid Uterus Post-Operative Diagnosis same plus mucocele on appendix Procedure(s) Performed Total Abdominal Hysterectomy; Appendectomy Surgeon Dr. Akhil London Surfacing Technician Surgeon(s) none Estimated Blood Loss 130mL Findings See Below large fibroid uterus mucocele of the appendix Specimens Permanent: A. Uterus, cervix, epicloic appendage B. Appendix Drains angelica drain vaginal cuff Anesthesia Type General Regional Complication(s) none Disposition Disposition: Recovery Room / PACU
--- NOTE | 2017-09-19 14:55 | OPERATIVE REPORT ---
DATE OF OPERATION: 09/19/2017 PREOPERATIVE DIAGNOSIS: Mucocele of the appendix. POSTOPERATIVE DIAGNOSIS: Same. PROCEDURE PERFORMED: Open appendectomy. SURGEON: César Maldonado MD WET PRIMER POWDER BLENDER: Myles London MD ANESTHESIA: General endotracheal. ESTIMATED BLOOD LOSS: 5 mL SPECIMENS: Appendix sent to pathology. INDICATION FOR PROCEDURE: This is a 57-year-old female undergoing an open hysterectomy by Dr. London. He in his exploration found an abnormal appendix with distal dilatation of the appendix consistent with a diffuse mucocele. I was called to remove the appendix. We will plan on removing the appendix as indicated in the procedure. DESCRIPTION OF PROCEDURE: The patient was found with a lower incision opened up with the appendix identified. The base of the appendix identified. A [place] clamp was placed on the cecum. A hemostat was used to identify the tip of the appendix. This was placed on tension. A small window was created at the base of the appendix with cautery. A GERTRUDIS stapler was then used to transect the appendix at its base. Using sharp and blunt dissection, 2 hemostats were used to clamp the mesoappendix. Appendix was then cut free from the mesoappendix and sent for pathologic evaluation. The mesoappendix was secured with 2 silk sutures. The abdomen was irrigated. The silk sutures were well placed on the mesoappendix. The staple line appeared intact with no bleeding. This was then irrigated and suctioned clear. I left Dr. London to do the rest of the procedure. I attest to the content of the Intraoperative Record and any orders documented therein. Any exception s are noted below.
[2017-09-19] MEDS ORDERED: BISACODYL 10 MG SUPP PR PRN (15:00)
[2017-09-19] MEDS ORDERED: SENNA 8.6 MG TAB PO PRN (15:00)
[2017-09-19] MEDS ORDERED: MAGNESIUM HYDROXIDE SUSP 30 ML UDC PO PRN (15:00)
--- NOTE | 2017-09-19 15:03 | OPERATIVE REPORT ---
DATE OF OPERATION: 09/19/2017 PROCEDURES: Total abdominal hysterectomy, suspension of vaginal cuff and appendectomy for suspected mucocele of the appendix. SURGEON: Dr. London. Also, Dr. Maldonado removed the appendix. PREOPERATIVE DIAGNOSIS: Symptomatic fibroid uterus. POSTOPERATIVE DIAGNOSES: Same and mucocele of the appendix. ESTIMATED BLOOD LOSS: 130 mL ANESTHESIA: General with spinal narcotics. OPERATIVE FINDINGS AND PROCEDURE: The patient was brought to the OR table, correctly identified by armband and conversation. Spinal narcotics had previously been infused. Then, she was placed under general anesthesia. Perineum and vagina were painted with Betadine paint, draped in usual sterile fashion. Soler catheter was inserted aseptically in the bladder, connected to gravity drainage. Lower uterine and upper thigh was painted with an alcohol-based sterilizing solution, draped in usual sterile fashion. A Pfannenstiel incision was made and carried down to the anterior fascia by sharp dissection. Hemostasis was secured by electrocauterization. Fascia was incised transversely, from underlying muscle by blunt and sharp dissection. Recti muscles were in the midline, exposing peritoneum which was carefully raised and entered. Then, an O'Murali-O'Johnson self-retraining retractor was inserted into the incision and several moist laparotomy pads were used to retract the intestines and provide adequate exposure of the pelvic cavity. Enlarged, deformed uterus with at least 2 large fibroids, 1 smaller was seen, it was brought out through the incision, was grasped with a double-tooth tenaculum. The round ligaments on either side were clamped close to the uterus with a Skye and then sutured distally with a double tie and a tag, then cut. Incision was made above the vesicouterine fold. Bladder was undermined bluntly and pushed out of the operative field. Posterior leaf of the broad ligament was punched through bluntly and the adnexa were dissected off the fundus of the uterus by tying 2 silk ties distally and 1 silk tie proximally and then cutting. Then, the uterine vessels were skeletonized, doubly clamped with a Nereida, then cut with a knife and then doubly ligated with chromic gut sutures. The bladder was advanced out of the operative field. Cervix was clamped by sliding off the cervix with a curved Brionna, cutting with a stump and then ligating with a chromic gut suture. This was done in 2 steps because of the length of the cervix. Then, the cervix was removed by entering posteriorly with electrocauterization and carrying around the cervix, thus removing the surgical specimen consisting of fibroid uterus and cervix. The angles of the vaginal cuff were suture ligated to the stumps of the cardinal ligaments on each side with a chromic gut suture. Then, the edges on the vagina on the right and left side were approximated front to back with a erhwet-ke-sxily suture of chromic catgut. The mid portion of the vaginal cuff was whipstitched open with a running chromic catgut. Then, the uterosacral ligaments were approximated posteriorly with a lxpwby-qd-yqrkc suture of heavy Vicryl and this helped support the cuff and partially obliterate the cul-de-sac. Ureters on either side were located. The round ligament was brought down, tied into the cuff on the right side, the round ligament on the left side was too short for this to be done. Then, the adnexa were tagged out of the pelvis up by the round ligament, approximated the peritoneum front to back on the right side and then the same thing on the left side and then tying to each other. The [place] drain with a safety clip was placed through the vaginal opening and then the end was placed in the cul-de-sac. Following this, hemostasis was excellent. Inspected the appendix and the appendix was abnormal both visually and to palpation. It was filled with either mucus or fluid. Called Dr. Maldonado who was the surgeon on-call and he removed the appendix. He agreed with the necessity for it to be removed and he dictated that part of the operative notation. Following this, we did a sponge and instrument count which was good, then we did a closure. Peritoneum was closed with a mattress suture of chromic catgut. Recti muscles were approximated with interrupted vapsuh-ol-czwqv suture of chromic catgut. The fascia was closed with continuous interlocking suture of Vicryl on each side, tied in the midline. Subcu was approximated with continuous plain. The skin edges were approximated with staple clips. I attest to the content of the Intraoperative Record and any orders documented therein. Any exception s are noted below.
--- NOTE | 2017-09-19 15:21 | Anesthesiology Progress Note ---
Anesthesia Post Op Note Date & Time Sep 19, 2017 at 15:21 Vital Signs Pain Intensity: 0 Vital Signs Past 12 Hours Date Time Temp Pulse Resp B/P (MAP) Pulse Ox O2 Delivery O2 Flow Rate FiO2 09/19/17 15:15 61 12 153/70 99 Nasal Cannula 3 09/19/17 15:05 72 14 137/70 98 Oxymask 15 09/19/17 14:55 80 14 130/75 97 Oxymask 15 09/19/17 14:48 36.2 81 18 142/80 100 Oxymask 10 09/19/17 08:14 36.7 69 18 152/69 97 Room Air Notes Mental Status: alert / awake / arousable, participated in evaluation Pt Amnestic to Procedure: Yes Nausea / Vomiting: adequately controlled Pain: adequately controlled Airway Patency, RR, SpO2: stable & adequate BP & HR: stable & adequate Hydration State: stable & adequate Anesthetic Complications: no major complications apparent
[2017-09-19] MEDS ORDERED: ROCURONIUM BROMIDE 10 MG/ML 5 ML VIAL IV ONE (16:04)
[2017-09-19] MEDS ORDERED: ACETAMINOPHEN 1000 MG/100 ML IV IV ONE (17:03)
[2017-09-19] MEDS: D5W AND LACTATED RINGERS 1,000 ML IV SCH (17:16)
[2017-09-20] VITALS (11 sets, daily range): BP systolic 127–153; BP diastolic 48–88; PULSE 59–73; TEMP 36.9–37.2; O2SAT 94–99
[2017-09-20] MEDS: D5W AND LACTATED RINGERS 1,000 ML IV SCH (01:05)
[2017-09-20] MEDS ORDERED: DC INTRASPINAL MORPHINE ONE (07:10)
[2017-09-20] MEDS ORDERED: ONDANSETRON INJ 2 MG/ML 2 ML VIAL IV PRN (07:11)
[2017-09-20] MEDS ORDERED: KETOROLAC TROMETHAMINE 30 MG/ML VIAL IV. PRN (07:11)
[2017-09-20] MEDS ORDERED: MEPERIDINE HCL 50 MG/ML CARP IV PRN ×2 (07:11)
[2017-09-20 07:46] LABS: BASO % 0.1 %; BASO ABS # 0.01 K/uL (0-0.2); EOS % 0.1 %; EOS ABS # 0.01 K/uL (0-0.5); HEMATOCRIT 35.1 % (37-47); HEMOGLOBIN 11.9 g/dL (12.0-16.0); IG# 0.02 K/uL (0.00-0.02); LYMPH % 8.8 %; MEAN CELL VOLUME 78.5 fL (80-100); MEAN CORPUSCULAR HEMOGLOBIN 26.6 pg (25-34); MEAN CORPUSCULAR HGB CONC 33.9 g/dl (32-36); MEAN PLATELET VOLUME 9.2 fL (7.4-10.4); MONO % 6.8 %; MONO ABS # 0.77 K/uL (0.11-0.59); NEUT ABS # 9.53 K/uL (1.4-6.5); PLATELET COUNT 199 K/uL (130-400); RED CELL DISTRIBUTION WIDTH CV 14.9 % (11.5-14.5); RED CELL DISTRIBUTION WIDTH SD 42.3 fL (36.4-46.3); WHITE BLOOD COUNT 11.34 K/uL (4.8-10.8)
--- NOTE | 2017-09-20 08:48 | Progress Note ---
Subjective Sep 20, 2017. Subjective conversation w/ patient Ambulation: ambulating normally Voiding: no voiding problems Passing Gas: No Diet Tolerance: Clear Liquids Review of Systems Constitutional: + fever Objective Vital Signs Date Time Temp Pulse Resp B/P (MAP) Pulse Ox O2 Delivery O2 Flow Rate FiO2 09/20/17 07:20 16 98 09/20/17 06:30 16 98 09/20/17 05:20 16 94 09/20/17 04:20 16 98 09/20/17 04:20 37.0 68 16 142/80 (100) 98 Room Air 09/20/17 03:45 16 98 09/20/17 02:45 16 97 09/20/17 01:45 16 96 09/20/17 00:45 36.9 59 16 127/48 (74) 97 Nasal Cannula 2.0 09/20/17 00:45 16 97 09/20/17 00:45 97 Room Air 2.0 09/19/17 23:15 16 96 09/19/17 22:31 20 97 09/19/17 21:35 20 97 09/19/17 20:35 20 98 09/19/17 19:35 37.0 68 20 130/72 (91) 96 Room Air 09/19/17 19:35 20 96 09/19/17 19:35 96 Nasal Cannula 2.0 09/19/17 18:05 18 97 09/19/17 18:05 36.6 63 18 143/77 (99) 97 Nasal Cannula 2.0 09/19/17 17:05 62 18 130/67 (88) 97 Nasal Cannula 2.0 09/19/17 17:05 18 97 09/19/17 16:35 60 16 138/73 (94) 98 Nasal Cannula 2.0 09/19/17 16:05 37.2 64 18 130/65 (86) 98 Nasal Cannula 2.0 09/19/17 16:05 18 98 09/19/17 16:05 98 Nasal Cannula 2.0 09/19/17 16:05 98 Nasal Cannula 2.0 09/19/17 15:45 58 12 136/66 98 Nasal Cannula 2 09/19/17 15:35 60 12 140/62 99 Nasal Cannula 2 09/19/17 15:25 36.2 60 12 143/71 99 Nasal Cannula 3 09/19/17 15:15 61 12 153/70 99 Nasal Cannula 3 09/19/17 15:05 72 14 137/70 98 Oxymask 15 09/19/17 14:55 80 14 130/75 97 Oxymask 15 09/19/17 14:48 36.2 81 18 142/80 100 Oxymask 10 Physical Exam General Appearance: WELL-APPEARING Respiratory/Chest: lungs clear Abdomen: normal bowel sounds, non tender Incision Description: Clean, Dry & Intact Extremities: no pedal edema, no calf tenderness Laboratory Results Last 24 Hours Test 09/20/17 07:32 White Blood Count 11.34 K/uL Red Blood Count 4.47 M/uL Hemoglobin 11.9 g/dL Hematocrit 35.1 % Mean Corpuscular Volume 78.5 fL Mean Corpuscular Hemoglobin 26.6 pg Mean Corpuscular Hemoglobin Concent 33.9 g/dl Platelet Count 199 K/uL Mean Platelet Volume 9.2 fL Neutrophils (%) (Auto) 84.0 % Lymphocytes (%) (Auto) 8.8 % Monocytes (%) (Auto) 6.8 % Eosinophils (%) (Auto) 0.1 % Basophils (%) (Auto) 0.1 % Neutrophils # (Auto) 9.53 K/uL Lymphocytes # (Auto) 1.00 K/uL Monocytes # (Auto) 0.77 K/uL Eosinophils # (Auto) 0.01 K/uL Basophils # (Auto) 0.01 K/uL RDW Standard Deviation 42.3 fL RDW Coefficient of Variation 14.9 % Immature Granulocyte % (Auto) 0.2 % Immature Granulocyte # (Auto) 0.02 K/uL Assessment and Plan Problem List Medical Problems: (1) Iron deficiency anemia Status: Acute Post-Op Day#: 1 Continue Routine Care: bandage removed
[2017-09-20] MEDS: IBUPROFEN 600 MG TAB PO PRN ×3 (09:26→19:25)
[2017-09-20] MEDS: OXYCODONE/ACETAMINOPHEN 5-325 TAB PO PRN ×3 (11:19→19:25)
[2017-09-21] MEDS: IBUPROFEN 600 MG TAB PO PRN ×5 (00:34→22:46)
[2017-09-21] MEDS: OXYCODONE/ACETAMINOPHEN 5-325 TAB PO PRN ×5 (00:34→22:46)
[2017-09-21 00:35] VITALS: BP 146/63; PULSE 75; TEMP 36.9; O2SAT 98
[2017-09-21 06:40] LABS: BASO % 0.5 %; BASO ABS # 0.04 K/uL (0-0.2); EOS % 1.7 %; EOS ABS # 0.13 K/uL (0-0.5); HEMATOCRIT 35.2 % (37-47); HEMOGLOBIN 11.6 g/dL (12.0-16.0); IG# 0.02 K/uL (0.00-0.02); LYMPH % 26.6 %; MEAN CORPUSCULAR HEMOGLOBIN 26.4 pg (25-34); MEAN PLATELET VOLUME 9.9 fL (7.4-10.4); MONO % 6.5 %; MONO ABS # 0.49 K/uL (0.11-0.59); NEUT % 64.4 %; NEUT ABS # 4.85 K/uL (1.4-6.5); PLATELET COUNT 197 K/uL (130-400); RED CELL DISTRIBUTION WIDTH CV 15.2 % (11.5-14.5); RED CELL DISTRIBUTION WIDTH SD 43.7 fL (36.4-46.3); WHITE BLOOD COUNT 7.53 K/uL (4.8-10.8)
[2017-09-21 07:50] VITALS: BP 170/83; PULSE 74; TEMP 37.1; O2SAT 97
--- NOTE | 2017-09-21 09:39 | Progress Note ---
Subjective Sep 21, 2017. Subjective conversation w/ patient Ambulation: ambulating normally Voiding: no voiding problems Passing Gas: Yes Diet Tolerance: Regular Diet Review of Systems Constitutional: + fever Objective Vital Signs Date Time Temp Pulse Resp B/P (MAP) Pulse Ox O2 Delivery O2 Flow Rate FiO2 09/21/17 07:50 37.1 74 18 170/83 (112) 97 Room Air 09/21/17 07:50 97 Room Air 09/21/17 00:35 98 Room Air 09/21/17 00:35 36.9 75 16 146/63 (90) 98 Room Air 09/20/17 15:20 97 Room Air 09/20/17 15:20 37.0 66 18 153/74 (100) 97 Room Air 09/20/17 11:24 37.2 73 18 148/87 (107) 99 Room Air Physical Exam General Appearance: WELL-APPEARING Abdomen: normal bowel sounds, non tender Incision Description: Clean, Dry & Intact Extremities: no pedal edema, no calf tenderness Laboratory Results Last 24 Hours Test 09/21/17 05:49 White Blood Count 7.53 K/uL Red Blood Count 4.40 M/uL Hemoglobin 11.6 g/dL Hematocrit 35.2 % Mean Corpuscular Volume 80.0 fL Mean Corpuscular Hemoglobin 26.4 pg Mean Corpuscular Hemoglobin Concent 33.0 g/dl Platelet Count 197 K/uL Mean Platelet Volume 9.9 fL Neutrophils (%) (Auto) 64.4 % Lymphocytes (%) (Auto) 26.6 % Monocytes (%) (Auto) 6.5 % Eosinophils (%) (Auto) 1.7 % Basophils (%) (Auto) 0.5 % Neutrophils # (Auto) 4.85 K/uL Lymphocytes # (Auto) 2.00 K/uL Monocytes # (Auto) 0.49 K/uL Eosinophils # (Auto) 0.13 K/uL Basophils # (Auto) 0.04 K/uL RDW Standard Deviation 43.7 fL RDW Coefficient of Variation 15.2 % Immature Granulocyte % (Auto) 0.3 % Immature Granulocyte # (Auto) 0.02 K/uL Assessment and Plan Problem List Medical Problems: (1) Iron deficiency anemia Status: Acute Post-Op Day#: 2
--- NOTE | 2017-09-21 09:51 | Progress Note ---
Subjective Sep 21, 2017. Subjective Voiding: no voiding problems Objective Vital Signs Date Time Temp Pulse Resp B/P (MAP) Pulse Ox O2 Delivery O2 Flow Rate FiO2 09/21/17 07:50 37.1 74 18 170/83 (112) 97 Room Air 09/21/17 07:50 97 Room Air 09/21/17 00:35 98 Room Air 09/21/17 00:35 36.9 75 16 146/63 (90) 98 Room Air 09/20/17 15:20 97 Room Air 09/20/17 15:20 37.0 66 18 153/74 (100) 97 Room Air 09/20/17 11:24 37.2 73 18 148/87 (107) 99 Room Air Laboratory Results Last 24 Hours Test 09/21/17 05:49 White Blood Count 7.53 K/uL Red Blood Count 4.40 M/uL Hemoglobin 11.6 g/dL Hematocrit 35.2 % Mean Corpuscular Volume 80.0 fL Mean Corpuscular Hemoglobin 26.4 pg Mean Corpuscular Hemoglobin Concent 33.0 g/dl Platelet Count 197 K/uL Mean Platelet Volume 9.9 fL Neutrophils (%) (Auto) 64.4 % Lymphocytes (%) (Auto) 26.6 % Monocytes (%) (Auto) 6.5 % Eosinophils (%) (Auto) 1.7 % Basophils (%) (Auto) 0.5 % Neutrophils # (Auto) 4.85 K/uL Lymphocytes # (Auto) 2.00 K/uL Monocytes # (Auto) 0.49 K/uL Eosinophils # (Auto) 0.13 K/uL Basophils # (Auto) 0.04 K/uL RDW Standard Deviation 43.7 fL RDW Coefficient of Variation 15.2 % Immature Granulocyte % (Auto) 0.3 % Immature Granulocyte # (Auto) 0.02 K/uL Assessment and Plan Problem List Medical Problems: (1) Iron deficiency anemia Status: Acute Post-Op Day#: 2 Continue Routine Care: angelica drain removed from vaginal cuff
[2017-09-21 16:30] VITALS: BP 165/87; PULSE 84; TEMP 37.2; O2SAT 96
[2017-09-22] VITALS (7 sets, daily range): BP systolic 152–183; BP diastolic 83–102; PULSE 65–77; TEMP 36.7–37.1; O2SAT 94–95
[2017-09-22] MEDS: LABETALOL HCL 100 MG TAB PO SCH ×2 (01:10→08:52)
[2017-09-22] MEDS: IBUPROFEN 600 MG TAB PO PRN ×3 (02:21→10:31)
[2017-09-22] MEDS: OXYCODONE/ACETAMINOPHEN 5-325 TAB PO PRN ×3 (02:22→10:30)
--- NOTE | 2017-09-22 07:55 | Anesthesiology Progress Note ---
Anesthesia Post Op Note Date & Time Sep 22, 2017 at 07:55 Vital Signs Pain Intensity: 5.0 Vital Signs Past 12 Hours Date Time Temp Pulse Resp B/P (MAP) Pulse Ox O2 Delivery O2 Flow Rate FiO2 09/22/17 04:45 36.7 65 16 167/88 (114) 94 Room Air 09/22/17 02:20 77 165/92 (116) 09/22/17 00:40 70 177/101 (126) 09/22/17 00:10 37.0 70 18 183/102 (129) 95 Room Air 09/22/17 00:10 95 Room Air Notes Mental Status: alert / awake / arousable, participated in evaluation Pt Amnestic to Procedure: Yes Nausea / Vomiting: adequately controlled Pain: adequately controlled Airway Patency, RR, SpO2: stable & adequate BP & HR: stable & adequate Hydration State: stable & adequate Anesthetic Complications: no major complications apparent
--- NOTE | 2017-09-22 08:51 | Progress Note ---
Subjective Sep 22, 2017. Subjective conversation w/ patient Ambulation: ambulating normally Voiding: no voiding problems Passing Gas: Yes Diet Tolerance: Regular Diet Lochia: Small Review of Systems Constitutional: + fever Objective Vital Signs Date Time Temp Pulse Resp B/P (MAP) Pulse Ox O2 Delivery O2 Flow Rate FiO2 09/22/17 07:15 95 Room Air 09/22/17 07:15 37.1 65 18 152/83 (106) 95 Room Air 09/22/17 04:45 36.7 65 16 167/88 (114) 94 Room Air 09/22/17 02:20 77 165/92 (116) 09/22/17 00:40 70 177/101 (126) 09/22/17 00:10 37.0 70 18 183/102 (129) 95 Room Air 09/22/17 00:10 95 Room Air 09/21/17 16:30 Room Air 09/21/17 16:30 37.2 84 18 165/87 (113) 96 Room Air Physical Exam General Appearance: WELL-APPEARING Respiratory/Chest: lungs clear Abdomen: normal bowel sounds, non tender Incision Description: Clean, Dry & Intact Extremities: no pedal edema, no calf tenderness Assessment and Plan Problem List Medical Problems: (1) Iron deficiency anemia Status: Acute Post-Op Day#: 3
--- NOTE | 2017-09-22 09:08 | DISCHARGE SUMMARY ---
Ms. Santos is a 57-year-old 2, para 2, came in for removal of a large pelvic mass. She had a large fibroid uterus consistent with about 17-18 week gestational size fundus. She also had symptoms of pelvic pressure and frequent urination. The day of admission she was taken to the OR where she underwent total abdominal hysterectomy with preservation of the ovaries. At the time of surgery, the appendix was noted to be abnormal. It was distended with mucus. I called in Dr. Maldonado. He removed the appendix and then the case went on in routine fashion. Postoperatively, she did well. Her preoperative hemoglobin was 14.2, hematocrit 41.3. Postoperatively, hemoglobin was 11.6, hematocrit 35.2. She had some delay in return of bowel sounds. They did not return until about the afternoon of the second day. Also on the second day, she had been afebrile and removed a [place] drain from the vaginal cuff which had been placed at the time of surgery. Finally on the third postoperative day, she was ambulating well, eating well, passing gas. She had good bowel sounds. Pain was well controlled with a prescription of Percocet and Motrin. Also during her hospitalization, she was noted to have high blood pressure and I put her on labetalol 100 mg twice a day until she could see her family physician for more long-term control of blood pressure. She was also told to return to the office for removal of ingrid and to call if she had a temperature over 100 or any heavy bleeding.
--- NOTE | 2017-09-22 09:10 | Discharge Instructions ---
Discharge Instructions Date of Service Sep 22, 2017. Admission Reason for Admission: Fibroid Uterus, Pelvic Pain Discharge Discharge Diagnosis / Problem: large fibroid uterus pelvic pain frquent urination Discharge Goals Goal(s): Routine recovery after surgery Activity Recommendations Activity Limitations: as noted below ACTIVITY RECOMMENDATIONS: * Gradual return to full activity over next 2-3 weeks. * No heavy lifting over next 2-3 weeks. * Nothing in the vagina (no intercourse, tampons, or douching) for 4 weeks * You may walk up and down steps as necessary. * You may drive a car in 2 weeks. * Hot shower or tub bath daily. SPECIAL CARE INSTRUCTIONS: * Check temperature twice daily for one week. Report any elevation over 100.4 degrees Fahrenheit (38.0 degrees Celsius). * Call your doctor if bleeding becomes heavier than the heaviest part of your period - saturating a sanitary pad within an hour. * If you develop a red, hard, warm swollen lump on your incision or if you develop any separation of or drainage from your incision, notify your doctor. . Instructions / Follow-Up Instructions / Follow-Up ACTIVITY RECOMMENDATIONS: * Gradual return to full activity over next 2-3 weeks. * No heavy lifting over next 2-3 weeks. * Nothing in the vagina (no intercourse, tampons, or douching) for 4 weeks * You may walk up and down steps as necessary. * You may drive a car in 2 weeks. * Hot shower or tub bath daily. SPECIAL CARE INSTRUCTIONS: * Check temperature twice daily for one week. Report any elevation over 100.4 degrees Fahrenheit (38.0 degrees Celsius). * Call your doctor if bleeding becomes heavier than the heaviest part of your period - saturating a sanitary pad within an hour. * If you develop a red, hard, warm swollen lump on your incision or if you develop any separation of or drainage from your incision, notify your doctor. Current Hospital Diet Patient's current hospital diet: Regular Diet Discharge Diet Recommended Diet: Regular Diet Procedures Procedures Performed: Total Abdominal Hysterectomy; Appendectomy Pending Studies Studies pending at discharge: no Medical Emergencies . Who to Call and When: Medical Emergencies: If at any time you feel your situation is an emergency, please call 911 immediately. . Non-Emergent Contact Non-Emergency issues call your: Computer Systems Consultant Call Non-Emergent contact if: temperature is above 100.5 . . "Provider Documentation" section prepared by Myles London. .
== END 2017-09-22 10:46 | disposition home or self-care (01) | DRG 743 ==
LOC: C.ACU 07:54 → ENRESERV 15:25 → C.MS4N 16:05
PROVIDERS: ADMIT Obstetrics & Gynecology; ATTEND Obstetrics & Gynecology
PROC: 0UT90ZZ Resection of Uterus, Open Approach (ICD-10-PCS; principal; 2017-09-19 10:45)
PROC: 0UTC0ZZ Resection of Cervix, Open Approach (ICD-10-PCS; principal; 2017-09-19 10:45)
PROC: 0DTJ0ZZ Resection of Appendix, Open Approach (ICD-10-PCS; 2017-09-19 10:45)
DX: D25.9 Leiomyoma of uterus, unspecified (principal); K38.8 Other specified diseases of appendix; D50.9 Iron deficiency anemia, unspecified; Z88.2 Allergy status to sulfonamides